=== PATIENT | male | born 1955 | race Caucasian/White ===

== ENCOUNTER 2017-08-04 12:58 | Emergency (ER) | payer OTHER ==
[2017-08-04] MEDS ORDERED: Silver Nitrate 1 Swab TP ONE (13:53)
--- NOTE | 2017-08-04 14:08 | ED Physician Chart ---
ED Chief Complaint/HPI - Patient Information Date Seen:: 08/04/17 Time Seen:: 13:40 Chief Complaint:: left epistaxis History of Present Illness:: Patient developed bleeding from his left nares at about 2100 last night. He estimates he bled about 1/2 cup of blood last night and another cup this morning. No nasal trauma. Allergies:: Allergies Allergy/AdvReac Type Severity Reaction Status Date / Time No Known Allergies Allergy Verified 08/04/17 13:46 Historian:: Patient Review:: Nurse's Note Reviewed ED Review of Systems - Review of Systems General/Constitutional: No fever, No chills Skin: No skin lesions Head: No headache Eyes: No loss of vision ENT: Other (left epistaxis) Neck: No neck pain Cardio Vascular: No chest pain, No palpitations Pulmonary: No SOB GI: No nausea, No vomiting, No diarrhea G/U: No dysuria, No frequency, No hematuria Musculoskeletal: No bone or joint pain, No back pain, No muscle pain Psychiatric: No prior psych history, No depression, No anxiety ED Past Medical History - Past Medical History Past Medical History: HTN Family History: HTN Social History: Non Smoker, Other Surgical History: Appendectomy Psychiatricy History: None Medication: Reviewed ED Physical Exam - Physical Examination General/Constitutional: Well-developed, well-nourished, Alert, No distress Head: Atraumatic Eyes: Lids, conjuctiva normal, PERRL Skin: Nl inspection, No rash ENMT: External ears, nose nl, TM canals nl, Lips, teeth, gums nl, Oropharynx nl , Tonsils nl Other ENMT comments:: Left nares: Blood clot present; no active bleeding Neck: No nuchal rigidity Respiratory: Nl effort/Exclusion Cardio Vascular: RRR GI: No tenderness/rebounding/guarding : No CVA tenderness Extremities: No tenderness or effusion Neuro/Psych: Alert/oriented, No focal deficits Misc: Normal back ED Assessment - Assessment General Assessment: Blood clot left nares removed with 2 x 2. 1% Xylocaine with epinephrine placed on a 2 x 2 which was put in the patient's left nares with pressure applied for about 20 minutes. Kiesselbach's plexus left nares cauterized with silver nitrate stick. Patient observed for about 20 minutes no recurrence of epistaxis. Explained to patient that since when he arrived his nose was not bleeding it is impossible to know for certain the site of the bleeding, that is , he could have had a posterior bleed in which case the bleeding could recur. ED Septic Shock - . Is Septic Shock (SBP<90, OR Lactate>4 mmol\L) present?: No ED Reassessment (Disposition) - Reassessment Reassessment Condition:: Improved - Diagnosis Diagnosis:: Left epistaxis - Aftercare/Follow up Instructions Aftercare/Follow-Up Instructions:: Refer to Discharge Instructions - Patient Disposition Discharge/Transfer:: Home Condition at Disposition:: Stable, Improved
== END 2017-08-04 14:50 | disposition home or self-care (01) ==
LOC: ER 12:58
DX: R04.0 Epistaxis (principal); I10 Essential (primary) hypertension; Z90.49 Acquired absence of other specified parts of digestive tract
CPT/HCPCS: Z7502